=== PATIENT | male | born 1990 | race Caucasian/White ===

== ENCOUNTER 2018-07-03 17:14 | Inpatient (IN) | payer BC, OTHER ==
[~2018-07-03] VITALS: Ht 185.4 cm; Wt 181.4 kg
[2018-07-03] MEDS ORDERED: KETOROLAC 30MG/ML VIAL IV STA (22:26)
[2018-07-03] MEDS ORDERED: SODIUM CHLORIDE 0.9% 1,000 ML IV ONE (22:26)
[2018-07-03] MEDS ORDERED: FAMOTIDINE 20MG/2ML VIAL IV STA (22:26)
[2018-07-03 22:50] LABS: BASOPHILS % 0.5 % (0.0-2.0); EOSINOPHILS % 1.4 % (0.0-5.0); HEMATOCRIT. 38.9 % (42.0-52.0); HEMOGLOBIN. 12.7 g/dL (14.0-18.0); LYMPHOCYTES % 10.9 % (20.0-50.0); MEAN CORPUSCULAR HEMOGLOBIN 26.8 pg (28.0-32.0); MEAN CORPUSCULAR VOLUME 82.4 fL (80.0-94.0); MEAN PLATELET VOLUME 7.6 fl (7.4-10.4); MONOCYTES % 5.6 % (2.0-8.0); NEUTROPHILS % 81.6 % (40.0-76.0); PLATELET 341 x1000/uL (130-400); RED BLOOD CELL COUNT 4.72 mill/uL (4.7-6.1); RED CELL DISTRIBUTION WIDTH 14.1 % (11.6-14.6)
[2018-07-03 22:56] LABS: CHLORIDE 103 mEq/L (98-107)
[2018-07-03 23:00] LABS: ETHANOL BLOOD < 10 mg/dL
[2018-07-04 00:02] LABS: CLARITY URINE CLEAR (CLEAR); COLOR URINE DARK YELLOW (YELLOW); KETONES URINE NEGATIVE (NEGATIVE); LEUKOCYTE ESTERASE URINE 1+ (NEGATIVE); NITRITE URINE NEGATIVE (NEGATIVE); OCCULT BLOOD URINE NEGATIVE (NEGATIVE); PROTEIN URINE 1+ (NEGATIVE); SPECIFIC GRAVITY URINE 1.025 (1.005-1.030)
[2018-07-04] MEDS ORDERED: MORPHINE SULFATE 4 MG/ML CPJ (NOT FOR IM USE) IV ONE (03:30)
[2018-07-04 03:46] LABS: INR 1.1; PARTIAL THROMBOPLASTIN TIME 33.6 sec (23.4-31.0); PROTHROMBIN TIME 11.2 sec (9.4-11.6)
[2018-07-04] MEDS ORDERED: IOHEXOL-350 100 ML BOTTLE ONE (04:02)
[2018-07-04] MEDS ORDERED: PIPERACILLIN/TAZOBACTAM 3.375GM/50ML PREMIX IV SCH (04:27)
[2018-07-04] MEDS ORDERED: SODIUM CHLORIDE 0.9% 1,000 ML IV SCH (05:27)
[2018-07-04] MEDS ORDERED: ACETAMINOPHEN 325MG TABLET PO PRN ×2 (05:30→09:45)
[2018-07-04 09:00] VITALS: BP 166/89
[2018-07-04] MEDS ORDERED: GUAIFENESIN 200MG/10ML SUGAR FREE UDC PO PRN (09:45)
[2018-07-04] MEDS ORDERED: MAGNESIUM/ALUMINUM HYDROXIDE/SIMETHICONE 30ML UDC PO PRN (09:45)
[2018-07-04] MEDS ORDERED: CLONIDINE 0.1MG TABLET PO PRN (09:45)
[2018-07-04] MEDS ORDERED: NA PHOS,M-B/NA PHOS,DI-BA ENEMA 118ML PR PRN (09:45)
[2018-07-04] MEDS ORDERED: IPRATROPIUM/ALBUTEROL 0.5-3(2.5)MG/3ML NEB INH PRN (09:45)
[2018-07-04] MEDS ORDERED: DOCUSATE SODIUM 100MG CAPSULE PO PRN (09:45)
[2018-07-04] MEDS ORDERED: LORAZEPAM 0.5MG TABLET PO PRN (09:45)
[2018-07-04] MEDS ORDERED: NITROGLYCERIN 0.4MG TABLET SL SL PRN (09:45)
[2018-07-04] MEDS ORDERED: DIPHENHYDRAMINE 50MG/ML VIAL IV PRN (09:45)
[2018-07-04] MEDS ORDERED: ONDANSETRON HCL 4MG/2ML VIAL IV PRN (09:45)
[2018-07-04] MEDS ORDERED: TRAMADOL 50MG TABLET PO PRN (09:45)
[2018-07-04] MEDS: PANTOPRAZOLE SODIUM 40 MG/VIAL IV SCH (10:59)
[2018-07-04] MEDS: KETOROLAC 15MG/ML VIAL IV PRN ×2 (11:01→20:12)
[2018-07-04] MEDS: AMLODIPINE 10MG TABLET PO SCH (11:04)
[2018-07-04 12:00] VITALS: BP 155/90
[2018-07-04] MEDS: PIPERACILLIN/TAZ 3.375G PREMIX 50 ML IV SCH ×3 (13:06→23:41)
[2018-07-04] MEDS: DEXT 5%/0.45% NACL 1000ML 1,000 ML IV SCH (13:06)
[2018-07-04 16:00] VITALS: BP 132/74
[2018-07-04 20:00] VITALS: BP 128/69
[2018-07-04] MEDS: ASCORBIC ACID 500 MG TABLET PO SCH (20:04)
[2018-07-04] MEDS ORDERED: ZOLPIDEM TARTRATE 5MG TABLET PO PRN (21:00)
[2018-07-05] VITALS: BP 130/71
[2018-07-05 04:00] VITALS: BP 137/79
[2018-07-05] MEDS: PIPERACILLIN/TAZ 3.375G PREMIX 50 ML IV SCH ×3 (05:19→18:31)
[2018-07-05] MEDS: DEXT 5%/0.45% NACL 1000ML 1,000 ML IV SCH ×2 (05:24→23:00)
[2018-07-05 08:00] VITALS: BP 125/80
[2018-07-05] MEDS: PANTOPRAZOLE SODIUM 40 MG/VIAL IV SCH (09:54)
[2018-07-05] MEDS: ASCORBIC ACID 500 MG TABLET PO SCH ×2 (09:54→21:54)
[2018-07-05] MEDS: AMLODIPINE 10MG TABLET PO SCH (10:00)
[2018-07-05 10:48] LABS: BASOPHILS % 0.2 % (0.0-2.0); EOSINOPHILS % 3.7 % (0.0-5.0); HEMOGLOBIN. 13.2 g/dL (14.0-18.0); LYMPHOCYTES % 9.9 % (20.0-50.0); MEAN CORPUSCULAR HEMOGLOBIN 26.8 pg (28.0-32.0); MEAN CORPUSCULAR VOLUME 82.9 fL (80.0-94.0); MEAN PLATELET VOLUME 7.8 fl (7.4-10.4); MONOCYTES % 5.8 % (2.0-8.0); NEUTROPHILS % 80.4 % (40.0-76.0); PLATELET 345 x1000/uL (130-400); RED BLOOD CELL COUNT 4.94 mill/uL (4.7-6.1); RED CELL DISTRIBUTION WIDTH 13.9 % (11.6-14.6)
[2018-07-05] MEDS: KETOROLAC 15MG/ML VIAL IV PRN (11:02)
[2018-07-05 12:00] VITALS: BP 113/62
[2018-07-05 14:24] LABS: CHLORIDE 102 mEq/L (98-107)
[2018-07-05 16:00] VITALS: BP 158/81
[2018-07-05 20:00] VITALS: BP 154/71
[2018-07-06] VITALS: BP 145/71
[2018-07-06] MEDS: PIPERACILLIN/TAZ 3.375G PREMIX 50 ML IV SCH ×5 (00:47→22:59)
[2018-07-06 04:00] VITALS: BP 135/58
[2018-07-06] MEDS: DEXT 5%/0.45% NACL 1000ML 1,000 ML IV SCH (05:30)
[2018-07-06 07:50] LABS: BASOPHILS % 0.5 % (0.0-2.0); EOSINOPHILS % 4.9 % (0.0-5.0); HEMATOCRIT. 38.8 % (42.0-52.0); HEMOGLOBIN. 12.7 g/dL (14.0-18.0); LYMPHOCYTES % 16.9 % (20.0-50.0); MEAN CORPUSCULAR HEMOGLOBIN 26.8 pg (28.0-32.0); MEAN CORPUSCULAR VOLUME 81.6 fL (80.0-94.0); MEAN PLATELET VOLUME 7.8 fl (7.4-10.4); MONOCYTES % 9.1 % (2.0-8.0); NEUTROPHILS % 68.6 % (40.0-76.0); PLATELET 304 x1000/uL (130-400); RED BLOOD CELL COUNT 4.75 mill/uL (4.7-6.1); RED CELL DISTRIBUTION WIDTH 14.2 % (11.6-14.6)
[2018-07-06 08:00] VITALS: BP 127/76
[2018-07-06] MEDS: ASCORBIC ACID 500 MG TABLET PO SCH ×2 (09:17→20:33)
[2018-07-06] MEDS: AMLODIPINE 10MG TABLET PO SCH (09:17)
[2018-07-06] MEDS: PANTOPRAZOLE SODIUM 40 MG/VIAL IV SCH (09:17)
[2018-07-06 20:00] VITALS: BP 136/85
[2018-07-07] VITALS (11 sets, daily range): BP systolic 119–157; BP diastolic 68–91
[2018-07-07] MEDS: PIPERACILLIN/TAZ 3.375G PREMIX 50 ML IV SCH ×3 (05:28→19:39)
[2018-07-07] MEDS: DEXT 5%/0.45% NACL 1000ML 1,000 ML IV SCH ×2 (05:29→20:37)
[2018-07-07] MEDS ORDERED: DIATR MEGLU/DIATRIZOATE SOLN 30ML PO SCH (06:45)
[2018-07-07] MEDS ORDERED: DIATR MEGLU/DIATRIZOATE SOLN 30ML PO ONE (07:00)
[2018-07-07 07:15] LABS: BASOPHILS % 0.7 % (0.0-2.0); EOSINOPHILS % 6.3 % (0.0-5.0); HEMATOCRIT. 40.7 % (42.0-52.0); HEMOGLOBIN. 13.2 g/dL (14.0-18.0); LYMPHOCYTES % 21.7 % (20.0-50.0); MEAN CORPUSCULAR HEMOGLOBIN 26.7 pg (28.0-32.0); MEAN CORPUSCULAR VOLUME 82.1 fL (80.0-94.0); MEAN PLATELET VOLUME 7.7 fl (7.4-10.4); MONOCYTES % 9.1 % (2.0-8.0); NEUTROPHILS % 62.2 % (40.0-76.0); PLATELET 307 x1000/uL (130-400); RED BLOOD CELL COUNT 4.95 mill/uL (4.7-6.1); RED CELL DISTRIBUTION WIDTH 13.9 % (11.6-14.6)
[2018-07-07] MEDS: ASCORBIC ACID 500 MG TABLET PO SCH ×2 (08:56→20:32)
[2018-07-07] MEDS: PANTOPRAZOLE SODIUM 40 MG/VIAL IV SCH (08:59)
[2018-07-07] MEDS: AMLODIPINE 10MG TABLET PO SCH (09:04)
[2018-07-07] MEDS ORDERED: IOHEXOL-300 100 ML BOTTLE ONE (12:55)
[2018-07-07] MEDS: MORPHINE SULFATE 4 MG/ML CPJ (NOT FOR IM USE) IV PRN ×2 (13:17→20:33)
[2018-07-07] MEDS ORDERED: SODIUM BICARBONATE 4% (2.4MEQ) 5ML VIAL IV ONE (13:22)
[2018-07-07] MEDS ORDERED: LIDOCAINE HCL 1% 20ML VIAL (Pyxis) INJ ONE (13:22)
[2018-07-08] VITALS: BP 125/68
[2018-07-08] MEDS: PIPERACILLIN/TAZ 3.375G PREMIX 50 ML IV SCH ×2 (01:47→07:00)
[2018-07-08 04:00] VITALS: BP 139/79
[2018-07-08] MEDS: MORPHINE SULFATE 4 MG/ML CPJ (NOT FOR IM USE) IV PRN (05:33)
[2018-07-08] MEDS ORDERED: FAMOTIDINE 20MG/2ML VIAL IV SCH (09:00)
[2018-07-08] MEDS: AMLODIPINE 10MG TABLET PO SCH (09:01)
[2018-07-08] MEDS: ASCORBIC ACID 500 MG TABLET PO SCH (09:01)
[2018-07-08 10:54] VITALS: BP 122/75
== END 2018-07-08 11:45 | disposition home or self-care (01) | DRG 690 ==
LOC: ER 17:14 → 6EST 07-04 05:29 → ENRESERV 07-04 07:29
PROVIDERS: ADMIT Internal Medicine; ATTEND Internal Medicine
PROC: 0D9N3ZZ Drainage of Sigmoid Colon, Percutaneous Approach (ICD-10-PCS; principal; 2018-07-07)
DX: N39.0 Urinary tract infection, site not specified (principal); K57.20 Diverticulitis of large intestine with perforation and abscess without bleeding; E44.1 Mild protein-calorie malnutrition; L02.211 Cutaneous abscess of abdominal wall; Z68.43 Body mass index [BMI] 50.0-59.9, adult; I10 Essential (primary) hypertension; D63.8 Anemia in other chronic diseases classified elsewhere; E66.01 Morbid (severe) obesity due to excess calories; Z79.899 Other long term (current) drug therapy; Z90.49 Acquired absence of other specified parts of digestive tract
CPT/HCPCS: 36415; 71045; 74177; 74178; 76770; 77012; 80053; 81003; 83036; 83605; 83690; 85025; 85610; 85730; 87040; 87086; 93005; 96361; 96374; 96375; 99285; C1729; C9113; G0482; J1200; J1885; J2270; J2405; J2543; J3490; J7030; L8514; Q9963; Q9967

== ENCOUNTER 2018-07-12 21:19 | Inpatient (IN) | payer OTHER ==
[~2018-07-12] VITALS: Ht 185.4 cm; Wt 181.4 kg
[2018-07-12] MEDS ORDERED: SODIUM CHLORIDE 0.9% 1,000 ML IV ONE (23:30)
[2018-07-13 00:41] LABS: BASOPHILS % 0.3 % (0.0-2.0); EOSINOPHILS % 2.5 % (0.0-5.0); HEMATOCRIT. 37.9 % (42.0-52.0); HEMOGLOBIN. 12.3 g/dL (14.0-18.0); LYMPHOCYTES % 10.6 % (20.0-50.0); MEAN CORPUSCULAR HEMOGLOBIN 26.1 pg (28.0-32.0); MEAN CORPUSCULAR VOLUME 80.9 fL (80.0-94.0); MEAN PLATELET VOLUME 7.6 fl (7.4-10.4); MONOCYTES % 5.1 % (2.0-8.0); NEUTROPHILS % 81.5 % (40.0-76.0); PLATELET 475 x1000/uL (130-400); RED BLOOD CELL COUNT 4.69 mill/uL (4.7-6.1); RED CELL DISTRIBUTION WIDTH 14.1 % (11.6-14.6)
[2018-07-13 00:44] LABS: INR 1.1; PROTHROMBIN TIME 11.4 sec (9.1-11.1)
[2018-07-13 00:46] LABS: CHLORIDE 99 mEq/L (98-107)
[2018-07-13] MEDS ORDERED: PIPERACILLIN SODIUM/TAZOBACTAM 4.5 G in DEXT 5% WATER 100 ML IV SCH (01:00)
[2018-07-13] MEDS ORDERED: VANCOMYCIN 1 G PREMIX 200 ML IV SCH (01:00)
[2018-07-13] MEDS ORDERED: VANCOMYCIN 2,000 MG in DEXT 5% WATER 500 ML IV NR (01:30)
[2018-07-13 03:52] LABS: CLARITY URINE CLEAR (CLEAR); COLOR URINE DARK YELLOW (YELLOW); KETONES URINE TRACE (NEGATIVE); LEUKOCYTE ESTERASE URINE 1+ (NEGATIVE); NITRITE URINE POSITIVE (NEGATIVE); OCCULT BLOOD URINE NEGATIVE (NEGATIVE); PH URINE 5.5 (4.5-8.0); PROTEIN URINE 1+ (NEGATIVE); SPECIFIC GRAVITY URINE 1.023 (1.005-1.030); UROBILINOGEN URINE 0.2 E.U./dL (0.2-1.0)
[2018-07-13] MEDS ORDERED: IOHEXOL-300 100 ML BOTTLE ONE (07:42)
[2018-07-13] MEDS ORDERED: TRAMADOL 50MG TABLET PO PRN (08:15)
[2018-07-13] MEDS ORDERED: ACETAMINOPHEN 325MG TABLET PO PRN (08:15)
[2018-07-13] MEDS ORDERED: DIPHENHYDRAMINE 50MG/ML VIAL IV PRN (08:15)
[2018-07-13] MEDS ORDERED: LORAZEPAM 0.5MG TABLET PO PRN (08:15)
[2018-07-13] MEDS ORDERED: ONDANSETRON 4MG ODT PO PRN (08:15)
[2018-07-13] MEDS ORDERED: MAGNESIUM/ALUMINUM HYDROXIDE/SIMETHICONE 30ML UDC PO PRN (08:15)
[2018-07-13] MEDS ORDERED: CLONIDINE 0.1MG TABLET PO PRN (08:15)
[2018-07-13] MEDS ORDERED: IPRATROPIUM/ALBUTEROL 0.5-3(2.5)MG/3ML NEB INH PRN (08:15)
[2018-07-13] MEDS ORDERED: NA PHOS,M-B/NA PHOS,DI-BA ENEMA 118ML PR PRN (08:15)
[2018-07-13] MEDS ORDERED: GUAIFENESIN 200MG/10ML SUGAR FREE UDC PO PRN (08:15)
[2018-07-13] MEDS ORDERED: DOCUSATE SODIUM 100MG CAPSULE PO PRN (08:15)
[2018-07-13] MEDS ORDERED: KETOROLAC 15MG/ML VIAL IV PRN (08:15)
[2018-07-13 10:00] VITALS: BP 118/62
[2018-07-13] MEDS: AMLODIPINE 5MG TABLET PO SCH (10:23)
[2018-07-13] MEDS: FAMOTIDINE 20MG TABLET PO SCH ×2 (10:23→20:47)
[2018-07-13] MEDS: ASCORBIC ACID 500 MG TABLET PO SCH ×2 (10:23→20:47)
[2018-07-13 10:54] VITALS: BP 118/62
[2018-07-13] MEDS: PIPERACILLIN/TAZ 3.375G PREMIX 50 ML IV SCH ×3 (11:46→23:16)
[2018-07-13 12:26] VITALS: BP 141/90
[2018-07-13 16:15] VITALS: BP 106/56
[2018-07-13 20:00] VITALS: BP 119/72
[2018-07-13] MEDS ORDERED: ZOLPIDEM TARTRATE 5MG TABLET PO PRN (21:00)
[2018-07-14] VITALS: BP 125/67
[2018-07-14 04:00] VITALS: BP 121/71
[2018-07-14] MEDS: PIPERACILLIN/TAZ 3.375G PREMIX 50 ML IV SCH ×3 (05:24→18:39)
[2018-07-14 08:00] VITALS: BP 118/75
[2018-07-14] MEDS: ASCORBIC ACID 500 MG TABLET PO SCH ×2 (08:50→22:29)
[2018-07-14] MEDS: FAMOTIDINE 20MG TABLET PO SCH ×2 (08:50→22:29)
[2018-07-14] MEDS: AMLODIPINE 5MG TABLET PO SCH (08:50)
[2018-07-14 09:07] LABS: BASOPHILS % 0.8 % (0.0-2.0); EOSINOPHILS % 4.3 % (0.0-5.0); HEMATOCRIT. 35.1 % (42.0-52.0); HEMOGLOBIN. 11.6 g/dL (14.0-18.0); LYMPHOCYTES % 14.3 % (20.0-50.0); MEAN CORPUSCULAR HEMOGLOBIN 26.7 pg (28.0-32.0); MEAN CORPUSCULAR VOLUME 80.6 fL (80.0-94.0); MEAN PLATELET VOLUME 7.2 fl (7.4-10.4); MONOCYTES % 5.4 % (2.0-8.0); NEUTROPHILS % 75.2 % (40.0-76.0); PLATELET 443 x1000/uL (130-400); RED BLOOD CELL COUNT 4.35 mill/uL (4.7-6.1); RED CELL DISTRIBUTION WIDTH 14.1 % (11.6-14.6)
[2018-07-14 12:00] VITALS: BP 127/78
[2018-07-14 16:00] VITALS: BP 137/75
[2018-07-14] MEDS ORDERED: DIATR MEGLU/DIATRIZOATE SOLN 30ML PO NR (18:00)
[2018-07-14 20:00] VITALS: BP 111/66
[2018-07-15] MEDS: PIPERACILLIN/TAZ 3.375G PREMIX 50 ML IV SCH ×5 (01:37→23:32)
[2018-07-15 04:00] VITALS: BP 162/94
[2018-07-15 08:00] VITALS: BP 129/80
[2018-07-15] MEDS: FAMOTIDINE 20MG TABLET PO SCH ×2 (09:00→21:57)
[2018-07-15] MEDS: AMLODIPINE 5MG TABLET PO SCH (09:01)
[2018-07-15] MEDS: ASCORBIC ACID 500 MG TABLET PO SCH ×2 (09:01→21:57)
[2018-07-15 12:00] VITALS: BP 126/74
[2018-07-15 16:00] VITALS: BP 131/62
[2018-07-15 20:00] VITALS: BP 137/83
[2018-07-16] VITALS: BP 141/82
[2018-07-16 04:00] VITALS: BP 137/80
[2018-07-16] MEDS: PIPERACILLIN/TAZ 3.375G PREMIX 50 ML IV SCH ×3 (06:49→17:26)
[2018-07-16 08:00] VITALS: BP 122/76
[2018-07-16] MEDS: ASCORBIC ACID 500 MG TABLET PO SCH ×2 (09:36→20:34)
[2018-07-16] MEDS: FAMOTIDINE 20MG TABLET PO SCH ×2 (09:36→20:34)
[2018-07-16] MEDS: AMLODIPINE 5MG TABLET PO SCH (09:37)
[2018-07-16 12:00] VITALS: BP 145/83
[2018-07-16 20:00] VITALS: BP 142/85
[2018-07-17] VITALS: BP 136/81
[2018-07-17] MEDS: PIPERACILLIN/TAZ 3.375G PREMIX 50 ML IV SCH ×3 (00:03→11:38)
[2018-07-17 04:00] VITALS: BP 140/82
[2018-07-17 08:00] VITALS: BP 142/89
[2018-07-17] MEDS: AMLODIPINE 5MG TABLET PO SCH (08:51)
[2018-07-17] MEDS: ASCORBIC ACID 500 MG TABLET PO SCH (08:52)
[2018-07-17] MEDS: FAMOTIDINE 20MG TABLET PO SCH (08:52)
[2018-07-17 13:19] VITALS: BP 144/91
== END 2018-07-17 13:58 | disposition home or self-care (01) | DRG 920 ==
LOC: ER 21:19 → 6EST 07-13 04:27 → EDBEDREQ 07-13 04:32 → ENRESERV 07-13 06:53 → CANRESERV 07-13 06:53 → EDBEDREQSVC 07-13 08:34 → ENRESERV 07-13 08:49
PROVIDERS: ADMIT Internal Medicine; ATTEND Internal Medicine
PROC: 0WPFX0Z Removal of Drainage Device from Abdominal Wall, External Approach (ICD-10-PCS; principal; 2018-07-14)
DX: T85.528A Displacement of other gastrointestinal prosthetic devices, implants and grafts, initial encounter (principal); K57.20 Diverticulitis of large intestine with perforation and abscess without bleeding; E44.0 Moderate protein-calorie malnutrition; N39.0 Urinary tract infection, site not specified; R65.10 Systemic inflammatory response syndrome (SIRS) of non-infectious origin without acute organ dysfunction; Z68.43 Body mass index [BMI] 50.0-59.9, adult; E66.01 Morbid (severe) obesity due to excess calories; I10 Essential (primary) hypertension; D63.8 Anemia in other chronic diseases classified elsewhere; Y83.8 Other surgical procedures as the cause of abnormal reaction of the patient, or of later complication, without mention of misadventure at the time of the procedure; Y92.89 Other specified places as the place of occurrence of the external cause; Z90.49 Acquired absence of other specified parts of digestive tract; Z79.899 Other long term (current) drug therapy
CPT/HCPCS: 36415; 74176; 74177; 80053; 81003; 83605; 83690; 85025; 85610; 86850; 86900; 87040; 93005; 96361; 96365; 96366; 96375; 99285; J2543; J3370; J7030; J7040; J7060; Q9967